=== PATIENT | male | born 1955 | race Caucasian/White ===

== ENCOUNTER 2018-08-24 18:41 | Observation (INO) | payer OTHER ==
--- NOTE | 2018-08-24 20:04 | PDOC ---
*Physical Exam - Vital Signs Last Vital Signs Temp Pulse Resp BP Pulse Ox 98.4 F 77 19 149/67 97 08/24/18 18:49 08/24/18 18:49 08/24/18 18:49 08/24/18 18:49 08/24/18 18:49 ED Treatment Course - LABORATORY CBC & Chemistry Diagram: 08/24/18 20:43 08/24/18 20:43 Medical Decision Making - Medical Decision Making 08/24/18 20:03 Patient seen by the advanced practice provider under my direct supervision. Ancillary testing reviewed as necessary. I agree with plan as outlined by the advanced practice provider. *DC/Admit/Observation/Transfer Diagnosis at time of Disposition: Dizziness - Referrals Referrals: Tra Quevedo MD [Primary Care Provider] - - Patient Instructions - Post Discharge Activity
[2018-08-24] MEDS ORDERED: SODIUM CHLORIDE 1,000 ML IV STA (20:31)
[2018-08-24] MEDS ORDERED: MECLIZINE HCL 25 MG TABLET (FP) PO ONE (20:37)
[2018-08-24] MEDS ORDERED: MECLIZINE HCL 25 MG TABLET (FP) ONE (20:39)
[2018-08-24 21:21] LABS: URINE APPEARANCE CLEAR; URINE BILIRUBIN NEGATIVE (NEGATIVE); URINE COLOR YELLOW; URINE GLUCOSE (UA) NEGATIVE (NEGATIVE); URINE KETONE NEGATIVE (NEGATIVE); URINE LEUK ESTERASE NEGATIVE (NEGATIVE); URINE NITRITE NEGATIVE (NEGATIVE); URINE PROTEIN NEGATIVE (NEGATIVE); URINE UROBILINOGEN 0.2 mg/dL (0.2-1.0)
[2018-08-24 21:22] LABS: ALBUMIN 3.8 g/dl (3.4-5.0); BILIRUBIN,TOTAL 0.3 mg/dL (0.2-1); BLOOD UREA NITROGEN 15.4 mg/dL (7-18); CALCIUM 9.2 mg/dL (8.5-10.1); CREATININE 0.8 mg/dL (0.55-1.3); POTASSIUM 4.5 mmol/L (3.5-5.1); TOT PROT 7.7 g/dl (6.4-8.2)
[2018-08-24 21:32] LABS: BASO % 0.3 % (0-2.0); EOS % 0.6 % (0-4.5); HEMATOCRIT 43.2 % (35.4-49); HEMOGLOBIN 14.5 GM/dL (11.7-16.9); LYMPH % 13.1 % (8-40); MCH 32.7 pg (25.7-33.7); MCHC 33.6 g/dl (32.0-35.9); MEAN CELL VOLUME 97.3 fl (80-96); MEAN PLT VOLUME 7.7 fl (7.5-11.1); PLATELET COUNT 209 K/MM3 (134-434); RBC 4.44 M/mm3 (4.00-5.60); RDW 13.5 % (11.9-15.9); WHITE BLOOD COUNT 9.6 K/mm3 (4.0-10.0)
[2018-08-24 22:03] LABS: INR 0.97 (0.83-1.09); PROTHROMBIN TIME (PATIENT) 11.4 SEC (9.7-13.0)
--- NOTE | 2018-08-24 23:00 | PDOC ---
History of Present Illness - General Chief Complaint: Lightheaded Stated Complaint: LIGHTHEADED Time Seen by Provider: 08/24/18 20:00 History Source: Patient Exam Limitations: No Limitations Past History - Travel Traveled outside of the country in the last 30 days: No Close contact w/someone who was outside of country & ill: No - Past Medical History Allergies/Adverse Reactions: Allergies Allergy/AdvReac Type Severity Reaction Status Date / Time No Known Allergies Allergy Verified 08/24/18 18:51 Home Medications: Ambulatory Orders Gabapentin [Neurontin] 300 mg PO BID 09/19/11 Oxycodone HCl/Acetaminophen [Percocet 10-650 mg Tablet] 1 - 2 combo PO Q6H 09/18 COPD: No Other medical history: neurophathy, sciatica, Arthritis - Suicide/Smoking/Psychosocial Hx Smoking Status: No Smoking History: Never smoked Have you smoked in the past 12 months: No Number of Cigarettes Smoked Daily: 0 If you are a former smoker, when did you quit?: 9 Information on smoking cessation initiated: No 'Breaking Loose' booklet given: 09/19/11 Hx Alcohol Use: No Drug/Substance Use Hx: No Substance Use Type: Marijuana Hx Substance Use Treatment: Yes Review of Systems - Review of Systems Able to Perform ROS?: Yes Comments:: 08/24/18 23:46 CONSTITUTIONAL: Absent: fever, chills, diaphoresis, generalized weakness, malaise, loss of appetite HEENT: Absent: rhinorrhea, nasal congestion, throat pain, throat swelling, difficulty swallowing, mouth swelling, ear pain, eye pain, visual Changes CARDIOVASCULAR: Absent: chest pain, loss of consciousness, palpitations, irregular heart rate, peripheral edema RESPIRATORY: Absent: cough, shortness of breath, dyspnea with exertion, orthopnea, wheezing, stridor, hemoptysis GASTROINTESTINAL: Absent: abdominal pain, abdominal distension, nausea, vomiting, diarrhea, constipation, melena, hematochezia GENITOURINARY: Absent: dysuria, frequency, urgency, hesitancy, hematuria, flank pain, genital pain MUSCULOSKELETAL: Absent: myalgia, arthralgia, joint swelling SKIN: Absent: rash, itching, pallor HEMATOLOGIC/IMMUNOLOGIC: Absent: easy bleeding, easy bruising, lymphadenopathy, frequent infections ENDOCRINE: Absent: unexplained weight gain, unexplained weight loss, heat intolerance, cold intolerance NEUROLOGIC: Present: dizziness/lightheaded Absent: headache, focal weakness or paresthesias , unsteady gait, seizure, mental status changes, bladder or bowel incontinence PSYCHIATRIC: Absent: anxiety, depression, suicidal or homicidal ideation, hallucinations. Is the patient limited Gibraltarian proficient: No *Physical Exam - Vital Signs Last Vital Signs Temp Pulse Resp BP Pulse Ox 98.4 F 77 19 149/67 97 08/24/18 18:49 08/24/18 18:49 08/24/18 18:49 08/24/18 18:49 08/24/18 18:49 - Physical Exam Comments: 08/24/18 23:47 GENERAL: Well developed, well nourished. Awake and alert. No acute distress. HEENT: Normocephalic, atraumatic. PERRLA, EOMI. No conjunctival pallor. Sclera are non- icteric. Moist mucous membranes. Oropharynx is clear. NECK: Supple. Full ROM. No JVD. Carotid pulses 2+ and symmetric, without bruits. No thyromegaly. No lymphadenopathy. CARDIOVASCULAR: Regular rate and rhythm. No murmurs, rubs, or gallops. Distal pulses are 2+ and symmetric. PULMONARY: No evidence of respiratory distress. Lungs clear to auscultation bilaterally. No wheezing, rales or rhonchi. ABDOMINAL: Soft. Non-tender. Non-distended. No rebound or guarding. No organomegaly. Normoactive bowel sounds. MUSCULOSKELETAL Normal range of motion at all joints. No bony deformities or tenderness. No CVA tenderness. EXTREMITIES: No cyanosis. No clubbing. No edema. No calf tenderness. SKIN: Warm and dry. Normal capillary refill. No rashes. No jaundice. NEUROLOGICAL: Alert, awake, appropriate. Cranial nerves 2-12 intact. No deficits to light touch and temperature in face, upper extremities and lower extremities. No motor deficits in the in face, upper extremities and lower extremities. Normoreflexic in the upper and lower extremities. Normal speech. Toes are down- going bilaterally. Gait is normal without ataxia. PSYCHIATRIC: Cooperative. Good eye contact. Appropriate mood and affect. ED Treatment Course - LABORATORY CBC & Chemistry Diagram: 08/24/18 20:43 08/24/18 20:43 - ADDITIONAL ORDERS Additional order review: Laboratory Results 08/24/18 08/24/18 08/24/18 20:43 20:43 20:43 PT with INR 11.40 INR 0.97 Sodium 140 Potassium 4.5 Chloride 108 H Carbon Dioxide 28 Anion Gap 3 L BUN 15.4 Creatinine 0.8 Est GFR (CKD-EPI)AfAm 110.96 Est GFR (CKD-EPI)NonAf 95.74 Random Glucose 106 Calcium 9.2 Total Bilirubin 0.3 AST 12 L ALT 20 Alkaline Phosphatase 93 Creatine Kinase 253 Creatine Kinase Index 2.6 CK-MB (CK-2) 6.8 H Troponin I < 0.02 Total Protein 7.7 Albumin 3.8 Urine Color Urine Appearance Urine pH Ur Specific Sanders Urine Protein Urine Glucose (UA) Urine Ketones Urine Blood Urine Nitrite Urine Bilirubin Urine Urobilinogen Ur Leukocyte Esterase 08/24/18 20:38 PT with INR INR Sodium Potassium Chloride Carbon Dioxide Anion Gap BUN Creatinine Est GFR (CKD-EPI)AfAm Est GFR (CKD-EPI)NonAf Random Glucose Calcium Total Bilirubin AST ALT Alkaline Phosphatase Creatine Kinase Creatine Kinase Index CK-MB (CK-2) Troponin I Total Protein Albumin Urine Color Yellow Urine Appearance Clear Urine pH 7.0 D Ur Specific Sanders 1.012 Urine Protein Negative Urine Glucose (UA) Negative Urine Ketones Negative Urine Blood Negative Urine Nitrite Negative Urine Bilirubin Negative Urine Urobilinogen 0.2 Ur Leukocyte Esterase Negative 08/24/18 20:43 RBC 4.44 MCV 97.3 H MCHC 33.6 RDW 13.5 MPV 7.7 Neutrophils % 81.0 Lymphocytes % 13.1 Monocytes % 5.0 Eosinophils % 0.6 D Basophils % 0.3 - RADIOLOGY Radiology Studies Ordered: Category Date Time Status HEAD CT WITHOUT CONTRAST [CT] Stat CT Scan 08/24/18 20:36 Completed - Medications Given in the ED: ED Medications Discontinued Medications Generic Name Dose Route Start Last Admin Trade Name Freq PRN Reason Stop Dose Admin Sodium Chloride 1,000 mls @ 1,000 mls/hr 08/24/18 20:31 08/24/18 21:05 Normal Saline - IV 08/24/18 21:30 1,000 mls/hr ASDIR STA Administration Meclizine HCl 50 mg 08/24/18 20:37 08/24/18 20:56 Antivert - PO 08/24/18 20:38 50 mg ONCE ONE Administration Medical Decision Making - Medical Decision Making 08/24/18 23:51 The patient is a 63-year-old male with past medical history of arthritis, neuropathy, who presents to the emergency department today for lightheadedness and dizziness starting this morning. He states he was as orthopedics getting knee injections as well as a epidural in his neck. After the procedures were over and he sat up he suddenly felt very lightheaded and dizzy. He states that symptoms have persisted since this morning. He states it is worse with movement. Denies fevers, chills, weakness to the extremities, headache, nausea, vomiting and diarrhea. PCP: Dr. Quevedo A/P: Lightheadedness On exam patient is neurologically intact with no focal findings. No dysmetria dysarthria dysdiadochokinesia. Basic labs, urine ordered; no leukocytosis, H&H stable, alert relates grossly normal. No UTI Head CT: Mild tonsillar ectopia without gross evidence of chiari malformation type I or mass effect on the brainstem., Minimal volume loss and mild ventricular dilatation. No acute CT evidence of acute intracranial pathology. EKG: Rate 65 BPM NSR. Normal intervals and axis. No acute ST-t wave pathology Orthostatics: Laying down RA: 125/68. Sitting RA: 130/68. Standing RA: 155/88 Given new onset dizziness and lightheadedness with overall negative CT, will admit the patient for neurology follow-up as well as MRI. Courtsy call to Dr. Quevedo placed and case was discussed [facility] paged for admission; Case discussed with Dr Selby PGY2, will admit under Dr. Harrison. *DC/Admit/Observation/Transfer Diagnosis at time of Disposition: Dizziness - Discharge Dispostion Condition at time of disposition: Stable Decision to Admit order: Yes - Referrals - Patient Instructions - Post Discharge Activity
--- NOTE | 2018-08-25 00:52 | PN ---
Teaching Attending Note Name of Resident: Airam Selby ATTENDING PHYSICIAN STATEMENT I saw and evaluated the patient. I reviewed the resident's note and discussed the case with the resident. I agree with the resident's findings and plan as documented. SUBJECTIVE: Patient is a 63 year old man with a PMH of morbid obesity, right shoulder surgery, chronic low back pain, arthritis and neuropathy, who presents to the ER for lightheadedness and dizziness starting this morning. He states he was at the Orthopedics Doctor getting left knee "gel" injection as well as a "lidocaine +" epidural in his upper back and buttock. While the left knee was being injected, he sat up he suddenly felt very lightheaded and dizzy. The symptoms self resolved and they continued the procedure. When he got home the symptoms restarted and have persisted since this morning. He states it is worse with movement. He gets injections about every 2 months and has never had similar symptoms. He walks with a cane. Denies fevers, chills, weakness to the extremities, headache, nausea, vomiting and diarrhea. No history of hypertension. Denies alcohol abuse or use of any illicit drugs. OBJECTIVE: Alert, obese and not orthostatic Vital Signs Period Temp Pulse Resp BP Sys/Will Pulse Ox Last 24 Hr 98.4 F 77 19 149/67 97 HEENT: No Jaundice, eye redness or discharge, PERRLA, EOMI. Normocephalic, atraumatic. External ears are normal and hearing is grossly intact. No nasal discharge. Neck: Supple, nontender. No palpable adenopathy or thyromegaly. No JVD Chest: Good effort. Clear to auscultation and percussion. Heart: Regular. No S3, rub or murmur Abdomen: Not distended, soft, nontender and no HSM. No rebound or guarding. Normal bowel sounds. Ext: Peripheral pulses intact. No leg edema. Skin: Warm and dry. No petechiae, rash or ecchymosis. Neuro: Alert. Oriented x3. CN 2-12 grossly intact. Sensation grossly intact in all four extremities and DTR are symmetric. Psych: Appropriate mood and affect. Good insight. Home Medications Medication Instructions Recorded Gabapentin [Neurontin] 300 mg PO BID 09/19/11 Oxycodone HCl/Acetaminophen 1 - 2 combo PO Q6H 09/19/11 [Percocet 10-650 mg Tablet] Abnormal Lab Results 08/24/18 08/24/18 08/24/18 20:43 20:43 20:43 MCV 97.3 H Chloride 108 H Anion Gap 3 L AST 12 L CK-MB (CK-2) 6.8 H ASSESSMENT AND PLAN: 1. Dizziness - Etiology unclear. In a reported case series, dizziness occurred in 10.51% of patients during epidural steroid injections. Patient does not have headache and there is no external spinal fluid leak. No acute abnormality on head CT. EKG is NSR with no significant ST-T wave changes. Will get brain, C spine and thoracic spine MRI, CXR, carotid doppler, ECHO and Neurology consult. Continue IV fluids. 2. Obesity Counseled on the risks associated with obesity. Will provide patient all the necessary assistance, counseling and positive reinforcement to facilitate weight loss. Consult laser beam color scanner operator. 3. DVT prophylaxis - Lovenox 40 mg SQ q 24 hours. 4. Advance directives - Full code
--- NOTE | 2018-08-25 01:11 | HP ---
CHIEF COMPLAINT: Dizziness s/p epidural injection x 1 day PCP: HISTORY OF PRESENT ILLNESS: Pt is a 63 yo M with morbid obesity, prior R shoulder sx, OA s/p b/l arthroscopic knee surgeries, chronic low back pain, recurrent joint injections, presenting with dizziness after epidural injections today. Pt reports receiving a L knee intra-articular injection first , then feeling dizzy. The dizziness resolved and the injection was completed. Afterwards, he received an injection into the R perispinal space posteriorly and then b/l saccral areas. Pt felt fine and went home. After he got home, the dizziness returned. Pt denied significant headache. He reports a vague feeling in the head about 2/10. No collapse, no falls. He reports prior mechanical falls in past due to polyneuropathies. Pt has never had similar dizziness after injections in the past, despite multiple epidural and knee injections. Pt reports eating lightly today. No prior fevers, no nasal congestion, no ear pain ER course was notable for: (1) NS, Meclizine (2) CT head-Minimal vol loss and mild ventricular dilation, No intracran path (3) Recent Travel: PAST MEDICAL HISTORY: PAST SURGICAL HISTORY: Social History: Smoking: Alcohol: Drugs: Family History: Allergies No Known Allergies Allergy (Verified 08/24/18 18:51) HOME MEDICATIONS: Home Medications Medication Instructions Recorded Gabapentin [Neurontin] 300 mg PO BID 09/19/11 Oxycodone HCl/Acetaminophen 1 - 2 combo PO Q6H 09/19/11 [Percocet 10-650 mg Tablet] REVIEW OF SYSTEMS CONSTITUTIONAL: Absent: fever, chills, diaphoresis, generalized weakness, malaise, loss of appetite, weight change HEENT: Absent: rhinorrhea, nasal congestion, throat pain, throat swelling, difficulty swallowing, mouth swelling, ear pain, eye pain, visual changes CARDIOVASCULAR: Absent: chest pain, syncope, palpitations, irregular heart rate, lightheadedness , peripheral edema RESPIRATORY: Absent: cough, shortness of breath, dyspnea with exertion, orthopnea, wheezing, stridor, hemoptysis GASTROINTESTINAL: Absent: abdominal pain, abdominal distension, nausea, vomiting, diarrhea, constipation, melena, hematochezia GENITOURINARY: Absent: dysuria, frequency, urgency, hesitancy, hematuria, flank pain, genital pain MUSCULOSKELETAL: Absent: myalgia, arthralgia, joint swelling, back pain, neck pain SKIN: Absent: rash, itching, pallor HEMATOLOGIC/IMMUNOLOGIC: Absent: easy bleeding, easy bruising, lymphadenopathy, frequent infections ENDOCRINE: Absent: unexplained weight gain, unexplained weight loss, heat intolerance, cold intolerance NEUROLOGIC: Absent: headache, focal weakness or paresthesias, dizziness, unsteady gait, seizure, mental status changes, bladder or bowel incontinence PSYCHIATRIC: Absent: anxiety, depression, suicidal or homicidal ideation, hallucinations. PHYSICAL EXAMINATION Vital Signs - 24 hr 08/24/18 18:49 Temperature 98.4 F Pulse Rate 77 Respiratory 19 Rate Blood Pressure 149/67 O2 Sat by Pulse 97 Oximetry (%) GENERAL: Awake, alert, and fully oriented, in no acute distress. HEAD: Normal with no signs of trauma. EYES: Pupils equal, round and reactive to light, extraocular movements intact, EARS, NOSE, THROAT: Ears normal, nares patent, oropharynx clear without exudates. Moist mucous membranes. NECK: Normal range of motion, supple without lymphadenopathy LUNGS: Breath sounds equal, clear to auscultation bilaterally. HEART: Regular rate and rhythm, normal S1 and S2 ABDOMEN: Soft, nontender, obese, normoactive bowel sounds, MUSCULOSKELETAL: bandage over R upper paraspinal injection site., Bilateral sacral injection sites. No erythema, no fluid leakage. Normal range of motion at all joints. No bony deformities or tenderness. No CVA tenderness. LOWER EXTREMITIES: 2+ pulses, warm, well-perfused. No calf tenderness.mild b/l edema, compression stockings in place. NEUROLOGICAL: Cranial nerves II-XII intact. Normal speech. Abnormal gait, favoring RLE. PSYCHIATRIC: Cooperative. Good eye contact. Appropriate mood and affect. SKIN: Warm, dry, normal turgor, no rashes or lesions noted, normal capillary refill. CBC, BMP 08/24/18 20:43 08/24/18 20:43 Laboratory Results - last 24 hr 08/24/18 08/24/18 08/24/18 20:38 20:43 20:43 WBC 9.6 RBC 4.44 Hgb 14.5 Hct 43.2 MCV 97.3 H MCH 32.7 MCHC 33.6 RDW 13.5 Plt Count 209 D MPV 7.7 Absolute Neuts (auto) 7.8 Neutrophils % 81.0 Lymphocytes % 13.1 Monocytes % 5.0 Eosinophils % 0.6 D Basophils % 0.3 Nucleated RBC % 0 PT with INR INR Sodium 140 Potassium 4.5 Chloride 108 H Carbon Dioxide 28 Anion Gap 3 L BUN 15.4 Creatinine 0.8 Est GFR (CKD-EPI)AfAm 110.96 Est GFR (CKD-EPI)NonAf 95.74 Random Glucose 106 Calcium 9.2 Total Bilirubin 0.3 AST 12 L ALT 20 Alkaline Phosphatase 93 Creatine Kinase Creatine Kinase Index CK-MB (CK-2) Troponin I Total Protein 7.7 Albumin 3.8 Urine Color Yellow Urine Appearance Clear Urine pH 7.0 D Ur Specific Kennard 1.012 Urine Protein Negative Urine Glucose (UA) Negative Urine Ketones Negative Urine Blood Negative Urine Nitrite Negative Urine Bilirubin Negative Urine Urobilinogen 0.2 Ur Leukocyte Esterase Negative 08/24/18 08/24/18 20:43 20:43 WBC RBC Hgb Hct MCV MCH MCHC RDW Plt Count MPV Absolute Neuts (auto) Neutrophils % Lymphocytes % Monocytes % Eosinophils % Basophils % Nucleated RBC % PT with INR 11.40 INR 0.97 Sodium Potassium Chloride Carbon Dioxide Anion Gap BUN Creatinine Est GFR (CKD-EPI)AfAm Est GFR (CKD-EPI)NonAf Random Glucose Calcium Total Bilirubin AST ALT Alkaline Phosphatase Creatine Kinase 253 Creatine Kinase Index 2.6 CK-MB (CK-2) 6.8 H Troponin I < 0.02 Total Protein Albumin Urine Color Urine Appearance Urine pH Ur Specific Kennard Urine Protein Urine Glucose (UA) Urine Ketones Urine Blood Urine Nitrite Urine Bilirubin Urine Urobilinogen Ur Leukocyte Esterase Ambulatory Orders Gabapentin [Neurontin] 400 mg PO BID 09/19/11 Current Medications Sodium Chloride (Normal Saline -) 1,000 mls @ 75 mls/hr IV [facility] Last Admin: 08/25/18 02:30 Dose: 75 mls/hr ASSESSMENT/PLAN: Pt is a 63 yo M with morbid obesity, prior R shoulder sx, OA s/p b/l arthroscopic knee surgeries, chronic low back pain, recurrent joint injections, presenting with dizziness after epidural injections today. Dizziness/presyncope: After epidural/ knee injections No prior hx of similar No spinal leak Received meclizine Delmis Hallpike test non conclusive CT head - negative Carotid US ECHO Gentle hydration NS@75 negative trops Neuro consult morbid obesity Counselling on diet May benefit from bariatric sx HgbA1c Lipid profile prior R shoulder sx/OA s/p b/l arthroscopic knee surgeries/chronic low back pain Requiring intraarticular/ paraspinal injections Cont Gabapentin Monitor for pain Neuropathy With gait defect PT Pain mx Gabapentin FEN Gentle hydration NS @75 Monitor lytes, replete as needed NPo for now DispoL Tele obs Visit type - Emergency Visit Emergency Visit: Yes ED Registration Date: 08/25/18 Care time: The patient presented to the Emergency Department on the above date and was hospitalized for further evaluation of their emergent condition. - New Patient This patient is new to me today: Yes Date on this admission: 08/25/18 - Critical Care Critical Care patient: No
[2018-08-25] MEDS ORDERED: SODIUM CHLORIDE 1,000 ML IV SCH (02:30)
[2018-08-25 06:47] LABS: BASO % 0.3 % (0-2.0); EOS % 0.7 % (0-4.5); HEMATOCRIT 41.2 % (35.4-49); HEMOGLOBIN 13.7 GM/dL (11.7-16.9); LYMPH % 17.5 % (8-40); MCHC 33.2 g/dl (32.0-35.9); MEAN CELL VOLUME 96.4 fl (80-96); MEAN PLT VOLUME 7.3 fl (7.5-11.1); MONO % 6.3 % (3.8-10.2); NEUT % 75.2 % (42.8-82.8); RBC 4.27 M/mm3 (4.00-5.60)
[2018-08-25 07:03] LABS: PROTHROMBIN TIME (PATIENT) 11.8 SEC (9.7-13.0)
[2018-08-25 07:06] LABS: ACTIVATED PTT 33.4 SECONDS (25.2-36.5)
[2018-08-25 07:08] LABS: PLATELET COUNT 184 K/MM3 (134-434)
[2018-08-25 07:13] LABS: CHOLESTEROL 148 mg/dL (50-200); HDL CHOLESTEROL 37 mg/dL (40-60); TRIGLYCERIDES 84 mg/dL (0-150)
[2018-08-25 07:27] LABS: ALBUMIN 3.1 g/dl (3.4-5.0); ALK PHOS 82 U/L (45-117); ANION GAP 5 MMOL/L (8-16); BILIRUBIN,TOTAL 0.3 mg/dL (0.2-1); BLOOD UREA NITROGEN 11.6 mg/dL (7-18); CALCIUM 8.1 mg/dL (8.5-10.1); CHLORIDE 112 mmol/L (98-107); CO2 25 mmol/L (21-32); CREATININE 0.7 mg/dL (0.55-1.3); GLUCOSE,RANDOM 94 mg/dL (74-106); MAGNESIUM 2.3 mg/dL (1.8-2.4); PHOSPHOROUS 2.7 mg/dL (2.5-4.9); POTASSIUM 4.1 mmol/L (3.5-5.1); SGOT/AST 12 U/L (15-37); SGPT/ALT 17 U/L (13-61); SODIUM 141 mmol/L (136-145); TOT PROT 6.6 g/dl (6.4-8.2)
[2018-08-25] MEDS ORDERED: GABAPENTIN 400 MG CAPSULE (FP) PO SCH (10:00)
--- NOTE | 2018-08-25 10:59 | ECHO ---
Version: 1 Name: ROBERTO ALBERTO Exam: Adult Echocardiogram Study Date: 08/25/2018, 9:52 AM Age: 63 Years MMode/2D Measurements & Calculations IVSd: 0.91 cm LVIDs: 3.7 cm LVIDd: 5.1 cm LVPWd: 1.18 cm LVOT diam: 2.35 cm Ao root diam: 2.7 cm LA dimension: 4.3 cm Doppler Measurements & Calculations MV E max pradeep: 84.4 cm/sec Med E/e': 13.7 MV A max pradeep: 75.5 cm/sec Med Peak E' Pradeep: 6.1 cm/sec MV E/A: 1.12 Lat E/e': 7.3 Lat Peak E' Pradeep: 11.6 cm/sec Ao max P.9 mmHg CHRISTIANO(I,D): 3.7 cm Ao mean P.1 mmHg LV V1 mean: 69.7 cm/sec Ao V2 max: 140.6 cm/sec LV V1 mean P.26 mmHg Procedure A complete two-dimensional transthoracic echocardiogram was performed (2D, M-mode, Doppler and color flow Doppler). The patient was in normal sinus rhythm during the exam. Left Ventricle The left ventricular size, thickness and function are normal. Ejection Fraction = 55%. Diastolic dys function, Grade II (pseudonormalization pattern). Right Ventricle The right ventricle is normal in size and function. Atria The left atrium is mildly dilated. Right atrial size is normal. Mitral Valve The mitral valve is normal in structure and function. Tricuspid Valve The tricuspid valve is normal in structure and function. Aortic Valve The aortic valve is normal in structure and function. Pulmonic Valve The pulmonic valve is normal in structure and function. Great Vessels The aortic root is normal size. Pericardium/Pleura There is no pericardial effusion. Summary Statements The left ventricular size, thickness and function are normal The right ventricle is normal in size and function. Sergio Whiteside 08/25/2018, 9:58 AM Ordering Physician: Airam Selby I Performed By: Cindi Mosqueda
--- NOTE | 2018-08-25 11:26 | CON.NEURO ---
Consult - Alcohol/Substance Use Hx Alcohol Use: No - Smoking History Smoking history: Never smoked Have you smoked in the past 12 months: No Aproximately how many cigarettes per day: 0 If you are a former smoker, when did you quit?: 9 Home Medications - Allergies Allergies/Adverse Reactions: Allergies Allergy/AdvReac Type Severity Reaction Status Date / Time No Known Allergies Allergy Verified 08/24/18 18:51 - Home Medications Home Medications: Ambulatory Orders Gabapentin [Neurontin] 400 mg PO TID 09/19/11 Tizanidine HCl 4 mg PO BID 08/25/18 Physical Exam-Neuro Vital Signs: Vital Signs Temperature 97.5 F L 08/25/18 07:15 Pulse Rate 65 08/25/18 07:15 Respiratory Rate 18 08/25/18 07:15 Blood Pressure 113/42 L 08/25/18 07:15 O2 Sat by Pulse Oximetry (%) 98 08/25/18 07:15 Labs: CBC, BMP 08/25/18 06:12 08/25/18 06:12 INR, PTT INR 1.00 (0.83-1.09) 08/25/18 06:12 Assessment/Plan CC Feeling of dizziness after TERRY and Knee injection HPI 63 year old male history of obesisy, knee arthritis , low back pain and had epidural injection on august 24, and knee injection. Following which he felt dizzy and later it got better and when he got home his dizziness and swaying to right harshal ecame back again. He came to ed , and he has ct head and now undergoing carotid ultrasound. He denies any focal neurological symptoms including dysphagia, dysarthria, diplopia , weakness or numbness. He also suffers from Neuropathy ? unknown etiology and he is being given gabapentin and percocet for chronic pain Patient has been feeling better but not back to normal yet. PMH as above PSH,SH,ROS,FH reviewed in chart No Known Allergies Allergy (Verified 08/24/18 18:51) HOME MEDICATIONS: Home Medications Medication Instructions Recorded Gabapentin [Neurontin] 300 mg PO BID 09/19/11 Oxycodone HCl/Acetaminophen 1 - 2 combo PO Q6H 09/19/11 [Percocet 10-650 mg Tablet] NEUROLOGICAL EXAMINATION Alert oriented x 3, speech is noraml, no neck stiffness eomi, pupils reactive no face asymmetry Moving all ext, 5/5 all ext sensation is normal reflex are diminised in lower extremity FTN HTS is noraml and no nystagmus was seen ct head is unremarkable carotid ultrasound is pending Assessment/Plan 1. 63 year old male history of Neuropahty, back pain, knee arthritis. Patient has episode of dizziness following injections ( TERRY nad knee injection), he feel vertigenous feeling, ct head is normal, normal exam .I suspect it could be Injection related or Cardiovascular in origin. There is no evidence of cerebellar dysfunction or stroke. Plan: Meclizine prn - PT -No Need for brain mri at this time - cardiac work up in progress Thanking you so much Stew Edgar MD
[2018-08-25 12:20] VITALS: BMI 44.3
--- NOTE | 2018-08-25 12:43 | EKG ---
Test Reason : Blood Pressure : / mmHG Vent. Rate : 065 BPM Atrial Rate : 065 BPM P-R Int : 160 ms QRS Dur : 090 ms QT Int : 404 ms P-R-T Axes : 047 049 052 degrees QTc Int : 420 ms NORMAL SINUS RHYTHM NORMAL ECG WHEN COMPARED WITH ECG OF 16-FEB-1999 11:52, NO SIGNIFICANT CHANGE WAS FOUND Confirmed by Gumaro Daniels MD ([id number]) on 08/25/2018 12:43:03 PM Referred By: Confirmed By:Gumaro Daniels MD
[2018-08-25] MEDS ORDERED: ACETAMINOPHEN 325 MG TABLET (FP) PO ONE (14:16)
--- NOTE | 2018-08-25 14:37 | PN ---
Physical Exam: SUBJECTIVE: Patient seen this morning and reports the dizziness is slightly better but its hard to tell with the uncomfortable mattress. OBJECTIVE: Vital Signs Temperature 98 F 08/25/18 11:45 Pulse Rate 65 08/25/18 07:15 Respiratory Rate 18 08/25/18 07:15 Blood Pressure 113/42 L 08/25/18 07:15 O2 Sat by Pulse Oximetry (%) 98 08/25/18 12:28 GENERAL: The patient is awake, alert, and fully oriented, in no acute distress. Obese HEAD: Normal with no signs of trauma. EYES: PERRL, extraocular movements intact, ENT: moist mucous membranes. LUNGS: Breath sounds equal, clear to auscultation bilaterally, no wheezes, no crackles, no accessory muscle use. HEART: Regular rate and rhythm, S1, S2 without murmur, rub or gallop. ABDOMEN: Soft, nontender, nondistended, normoactive bowel sounds, EXTREMITIES: 2+ pulses, warm, well-perfused, no edema. varicose veins NEUROLOGICAL: Cranial nerves II through XII grossly intact. Normal speech, gait not observed. SKIN: Warm, dry, normal turgor, no rashes or lesions noted CBCD WBC 8.0 K/mm3 (4.0-10.0) 08/25/18 06:12 RBC 4.27 M/mm3 (4.00-5.60) 08/25/18 06:12 Hgb 13.7 GM/dL (11.7-16.9) 08/25/18 06:12 Hct 41.2 % (35.4-49) 08/25/18 06:12 MCV 96.4 fl (80-96) H 08/25/18 06:12 MCHC 33.2 g/dl (32.0-35.9) 08/25/18 06:12 RDW 14.0 % (11.9-15.9) 08/25/18 06:12 Plt Count 184 K/MM3 (134-434) 08/25/18 06:12 MPV 7.3 fl (7.5-11.1) L 08/25/18 06:12 CMP Sodium 141 mmol/L (136-145) 08/25/18 06:12 Potassium 4.1 mmol/L (3.5-5.1) 08/25/18 06:12 Chloride 112 mmol/L (98-107) H 08/25/18 06:12 Carbon Dioxide 25 mmol/L (21-32) 08/25/18 06:12 Anion Gap 5 MMOL/L (8-16) L 08/25/18 06:12 BUN 11.6 mg/dL (7-18) 08/25/18 06:12 Creatinine 0.7 mg/dL (0.55-1.3) 08/25/18 06:12 Calcium 8.1 mg/dL (8.5-10.1) L 08/25/18 06:12 Total Bilirubin 0.3 mg/dL (0.2-1) 08/25/18 06:12 AST 12 U/L (15-37) L 08/25/18 06:12 ALT 17 U/L (13-61) 08/25/18 06:12 Alkaline Phosphatase 82 U/L (45-117) 08/25/18 06:12 Total Protein 6.6 g/dl (6.4-8.2) 08/25/18 06:12 Albumin 3.1 g/dl (3.4-5.0) L 08/25/18 06:12 Active Medications Generic Name Dose Route Start Last Admin Trade Name Freq PRN Reason Stop Dose Admin Gabapentin 400 mg 08/25/18 10:00 08/25/18 13:17 Neurontin - PO 400 mg BID MIN Administration Sodium Chloride 1,000 mls @ 75 mls/hr 08/25/18 02:30 08/25/18 02:30 Normal Saline - IV 75 mls/hr ASDIR MIN Administration ASSESSMENT/PLAN: Patient is a 63 y/o male with a history of obesity, chronic hip and back pain, and recurrent joint injections who is admitted for dizziness. #dizziness - symptoms improved - labs WNL, no abnormalitites - head CT: minimal volume loss, mild ventricular dilitation - Echo: LV size, thickness, and function are normal, right ventricle normal in size and function - Carotid US: mild intimal thickening in the distal common carotid artery and at the bifurcation, bilaterally without evidence of hemodynamically significant stenosis #chronic back and joint pain - gabapentin 400 mg po TID - tylenol as needed for pain #DVT ppx - early ambulation FEN - full diet dispo: if can walk with PT can DC Visit type - Emergency Visit Emergency Visit: No - New Patient This patient is new to me today: No - Critical Care Critical Care patient: No
--- NOTE | 2018-08-25 16:27 | PN ---
Teaching Attending Note Name of Resident: Leanne Villatoro ATTENDING PHYSICIAN STATEMENT I saw and evaluated the patient. I reviewed the resident's note and discussed the case with the resident. I agree with the resident's findings and plan as documented. SUBJECTIVE:dizzyness has resolved. denies CP, SOB, fever, chills, N/V/C/D or blurred vision OBJECTIVE: Last Vital Signs Temp Pulse Resp BP Pulse Ox 98.0 F 69 18 146/65 98 08/25/18 14:00 08/25/18 14:00 08/25/18 14:00 08/25/18 14:00 08/25/18 12:28 General NAD CV S1 S2 RRR no murmur/rub/gallop Lungs CTA B/L no wheezing/rales/rhonchi ASSESSMENT AND PLAN: 63yo M with PMH low back pain receiving injections every few months reports to the ER after developing dizzyness after epidural today. 1. Dizziness - possible related to epidural injection. now resolved. workup all negative, troponins x2, echo, carotid doppler and head CT. will d/c with meclzine and neuro follow up.
--- NOTE | 2018-08-25 17:18 | DS ---
Physical Exam: SUBJECTIVE:Patient seen this morning and reports the dizziness is slightly better but its hard to tell with the uncomfortable mattress. OBJECTIVE: Vital Signs Temperature 97.6 F 08/25/18 18:32 Pulse Rate 68 08/25/18 18:32 Respiratory Rate 20 08/25/18 18:32 Blood Pressure 129/78 08/25/18 18:32 O2 Sat by Pulse Oximetry (%) 98 08/25/18 12:28 PHYSICAL EXAM GENERAL: The patient is awake, alert, and fully oriented, in no acute distress. Obese HEAD: Normal with no signs of trauma. EYES: PERRL, extraocular movements intact, ENT: moist mucous membranes. LUNGS: Breath sounds equal, clear to auscultation bilaterally, no wheezes, no crackles, no accessory muscle use. HEART: Regular rate and rhythm, S1, S2 without murmur, rub or gallop. ABDOMEN: Soft, nontender, nondistended, normoactive bowel sounds, EXTREMITIES: 2+ pulses, warm, well-perfused, no edema. varicose veins NEUROLOGICAL: Cranial nerves II through XII grossly intact. Normal speech, gait not observed. SKIN: Warm, dry, normal turgor, no rashes or lesions noted LABS CBC, BMP 08/25/18 06:12 08/25/18 06:12 HOSPITAL COURSE: Date of Admission:08/25/18 Patient is a 63 y/o male with a history of obesity, chronic hip and back pain, and recurrent joint injections who is admitted for dizziness. Patient had head CT, echo, and carotid without any abnormalities. Patient was evaluared by neurology and cleared. Patient was able to tolerate walking with PT. Patient will be DC with meclazine. Patient vitals stable for discharge. head CT: minimal volume loss, mild ventricular dilitation Echo: LV size, thickness, and function are normal, right ventricle normal in size and function Carotid US: mild intimal thickening in the distal common carotid artery and at the bifurcation, bilaterally without evidence of hemodynamically significant stenosis Date of Discharge: 08/25/18 Minutes to complete discharge: 45 Discharge Summary Reason For Visit: DIZZINESS Condition: Improved - Instructions Diet, Activity, Other Instructions: You were admitted to the hospital for dizziness. We did imaging of your heart ( echo) and imaging of your neck ( carotid ultrasound) and they were both normal. You were evaluated by a neurologist, Dr. Edgar. You do not need to stay in a hospital at this time. If you are feeling dizzy please take: Meclazine 25 mg up to twice a day by mouth - you should not drive or operate heavy machinery on this medication as it can cause drowsiness You should make an appointment and follow up with your primary care physician within one week. Please continue your home medications as prescribed. Return to the Emergency Department if you have nausea, vomiting, diarrhea, chest pain, fever, chills, shortness of breath, or worsening of symptoms. Referrals: tSew Edgar MD [Staff Physician] - Disposition: HOME - Home Medications Comprehensive Discharge Medication List: Ambulatory Orders Gabapentin [Neurontin] 400 mg PO TID 09/19/11 Ibuprofen [Advil -] 800 mg PO ASDIR PRN 08/25/18 Meclizine HCl [Antivert -] 25 mg PO BID PRN #15 tablet 08/25/18 Tizanidine HCl 4 mg PO BID 08/25/18 This patient is new to me today: No Emergency Visit: No Critical Care patient: No - Discharge Referral Referred to [facility] No
[2018-08-25 18:35] VITALS: BP 129/78; PULSE 68; TEMP 97.6
== END 2018-08-25 19:25 | disposition home or self-care (01) ==
LOC: JER 18:41 → JERBED 08-25 01:14 → J5S 08-25 12:06
PROVIDERS: ADMIT Internal Medicine; ATTEND Internal Medicine
PROC: 3E0337Z Introduction of Electrolytic and Water Balance Substance into Peripheral Vein, Percutaneous Approach (ICD-10-PCS; principal; 2018-08-25)
DX: R42 Dizziness and giddiness (principal); G62.9 Polyneuropathy, unspecified; M54.5 Low back pain; G89.29 Other chronic pain; M17.12 Unilateral primary osteoarthritis, left knee; E66.9 Obesity, unspecified; Z68.42 Body mass index [BMI] 45.0-49.9, adult; Z98.890 Other specified postprocedural states; R26.89 Other abnormalities of gait and mobility; Z99.89 Dependence on other enabling machines and devices; Z91.81 History of falling
CPT/HCPCS: 36415; 70450-TC; 71045-TC-FY; 80053; 80061; 81003; 82550; 82553; 83036; 83721; 83735; 84100; 84484; 85025; 85610; 85730; 87086; 93005; 93010; 93306-TC; 93880-TC; 96360; 97116-GP; 97161-GP; 99284-25; G0378; J7030